=== PATIENT | male | born 1980 | race Caucasian/White ===

== ENCOUNTER → 2016-09-11 | Outpatient (CLI) | payer BC ==
[~2016-09-11] MED LIST: CHOL4POW2 PO; CRS10 PO; LRT5 PO; NXM/40 PO; OMEG10007 PO; PANT40TA PO; SERT25TA PO; SIMV10TA2 PO
--- NOTE | 2016-09-11 08:46 | DIAGNOSTIC IMAGING REPORT ---
BILIARY ULTRASOUND CLINICAL HISTORY: Epigastric pain. Abnormal liver function tests. COMPARISON STUDY: No previous studies for comparison. FINDINGS: The gallbladder appears sonographically normal. The liver appears sonographically normal. There is no right-sided hydronephrosis. There is no ductal dilatation. The common bile duct measures 3 mm. The pancreas is poorly visualized. No pancreatic masses were identified. IMPRESSION: Suboptimal visualization the pancreas. Otherwise normal study. Electronically signed by: Mina Macedo M.D. 09/11/2016 8:45 AM Dictated Date/Time: 09/11/2016 8:44 AM
== END | disposition home or self-care (01) ==
LOC: C.ULTR 08:12
PROVIDERS: ATTEND Internal Medicine
DX: R10.13 Epigastric pain (principal); R94.5 Abnormal results of liver function studies; R11.0 Nausea

== ENCOUNTER → 2016-09-25 | Outpatient (CLI) | payer BC | END | disposition home or self-care (01) | LOC: C.RDSM 10:30 | PROVIDERS: ATTEND Physical Medicine & Rehabilitation Sports Medicine | DX: G56.22 Lesion of ulnar nerve, left upper limb (principal); G56.00 Carpal tunnel syndrome, unspecified upper limb ==

== ENCOUNTER → 2016-10-04 | Day surgery (SDC) | payer BC ==
[2016-09-27 08:42] VITALS: Ht 170.2 cm; Wt 77.3 kg
[~2016-10-04] VITALS: Ht 170.2 cm; Wt 77.3 kg
[~2016-10-04] MED LIST changes: +ATROPINE SULFATE 0.1 MG/ML 5ML SYR IV PRN; +BUPIVACAINE/EPINEPHRINE 0.5% MPF 1:200,000 10 ML VIAL ONE; +CEFAZOLIN 2000 MG/60 ML D5W IV SCH; +DEXAMETHASONE SOD INJ 4 MG/ML VIAL ONE; +EpHEDrine SULFATE INJ 50 MG/ML AMP IV PRN; +FENTANYL CITRATE INJ 50 MCG/1 ML 2 ML VIAL IV PRN; +FENTANYL CITRATE INJ 50 MCG/1 ML 2 ML VIAL ONE; +KETOROLAC TROMETHAMINE 30 MG/ML VIAL ONE; +LACTATED RINGER'S 1000ML 1,000 ML IV SCH; +LIDOCAINE HCL 2% 2 ML VIAL (20MG/ML) ONE; +LIDOCAINE/EPINEPHRINE 1% INJ 50 ML VIAL ONE; -LRT5 PO; +MIDAZOLAM HCL 1 MG/ML 2ML VIAL ONE; +MoRPHine SULFATE 2 MG/ML CARP IV PRN; +MoRPHine SULFATE 4 MG/ML 1 ML CARP\\VIAL IV PRN; +ONDANSETRON INJ 2 MG/ML 2 ML VIAL IV PRN; +ONDANSETRON INJ 2 MG/ML 2 ML VIAL ONE; +OXYCODONE/ACETAMINOPHEN 5-325 TAB PO PRN; -PANT40TA PO; +PROMETHAZINE HCL INJ 6.25 MG in SODIUM CHLORIDE 0.9% 50ML 50 ML IV PRN; +PROPOFOL IV EMULSION 10 MG/ML 20 ML VIAL IV ONE; -SIMV10TA2 PO; +SODIUM CHLORIDE 0.9% 1000ML 1,000 ML IV SCH
--- NOTE | 2016-10-04 06:43 | History & Physical Bridge Note ---
H&P Re-Evaluation Bridge Note: I have examined the patient, reviewed the History & Physical and in the interval since the performance of the History & Physical I have noted the following changes of clinical significance: No changes noted
--- NOTE | 2016-10-04 09:32 | Discharge Instructions-SurgCtr ---
Discharge Instructions Date of Service Oct 04, 2016. Visit Reason for Visit: Left Carpal And Cubital Tunnel Syndrome Discharge Discharge Diagnosis / Problem: left carpal and cubital tunnel syndrome Discharge Goals Goal(s): Decrease discomfort, Improve function, Increase independence Activity Recommendations Activity Limitations: per Instructions/Follow-up section Weightbearing Status: Left non-weightbearing (upper extremity) Anesthesia . Post Anesthesia Instructions: If you have had General Anesthesia or IV Sedation: * Do not drive today. * Resume driving when surgeon permits. * Do not make important decisions or sign legal documents today. * Call surgeon for: 1. Temperature elevations greater than 101 degrees F. 2. Uncontrollable pain. 3. Excessive bleeding. 4. Persistent nausea and vomiting. 5. Medication intolerance (nausea, vomiting or rash). * For nausea and vomiting use only clear liquids such as: tea, soda, bouillon until nausea subsides, then gradually increase diet as tolerated. * If you have any concerns or questions, call your surgeon's office. If physician is unavailable and it is an emergency, call 911 or go to the nearest emergency room. . Instructions / Follow-Up Instructions / Follow-Up The following are instructions to follow after minor hand surgery. ACTIVITY RECOMMENDATIONS: * Minimize activity until your first visit after surgery. * No excessive walking, jogging, sports or laboring. * Return to activity is individualized. Most patients are able to return to everyday activities within 2 weeks. * Return to sports or intensive labor usually occurs at 1-2 months. * DRIVING: Driving may be resumed when you feel you have adequate pain control and use of the hand. * BATHING: You may shower or sponge-bathe immediately after surgery. The dressing will need to be covered with a plastic bag or plastic wrap until the dressing is changed on the fourth or fifth day after surgery. Once the dressing has been changed on the fourth or fifth day after surgery, you may shower and get the incision wet. * Wash with regular soap and water. * Do not bathe (submerge the incision), soak, swim or use a hot tub until the incision is completely healed over with normal skin and the doctor has given the OK to proceed. * There is no need to apply any ointments, powders or salves to your incision. * Do not apply alcohol or hydrogen peroxide directly to the incision. Diluted peroxide (50:50 mixture with sterile saline) may be used to clean dried blood from around the incision area. WORK/SCHOOL: * You may return to sedentary work or school when you are feeling comfortable. This is usually 3-7 days after surgery. * Expect increased discomfort with increased activity. Continue to elevate and ice the hand as much as possible. DIET: * Resume previous diet. MEDICATIONS: * You will have a prescription for pain medication and an anti-inflammatory medication after surgery. Use the pain pills for severe pain and the anti-inflammatory for less severe pain. * Once the pain pills have run out, try to use the anti-inflammatory. If this is not effective then contact the office for assistance. * The pain medication may cause nausea, constipation and sleepiness. You should see how they affect you before driving or similar activity. * The anti-inflammatory may cause stomach upset and bleeding. If this occurs, let your doctor know immediately . * Some patients may need blood clot prevention. This can be done with either a pill or a simple shot. Your doctor will advise you on when to begin these medications and how to take them. * Do not take aspirin or other anti-inflammatory products (i.e. Advil or Aleve ) if taking blood thinner medication. * Take a stool softener like Colace or a stimulant like Senokot to prevent constipation. SPECIAL CARE INSTRUCTIONS: ICE: * Do not apply ice directly to the skin. * Use a thin dressing or stockinet between the skin and ice bag. The dressing in place after surgery will suffice. * Apply ice for 20-30 minutes and repeat every 2-4 hours. This is especially important for the first 3-7 days after surgery. * Once the pain improves, use ice as needed. ELEVATION: * Keep your hand elevated at or above the level of your heart as much as possible. * Expect some increased discomfort and swelling if you allow your hand to hang down for any length of time. DRESSING: * Your dressing will be changed 4-5 days after surgery by the physical therapist or physician's catering assistant. Leave your dressing intact until this time. * You may then change your dressing daily with clean dry gauze or Band-aids and a soft wrap or stockinet. * Always wash your hands prior to touching the incision area. * Once the stitches are removed, you may leave the wound open to air or cover with a thin bandage. * There is no need to apply any ointments, powders or salves to your incision. * Expect some bloody drainage for the first few days after surgery. * Leave the tape strips in place (if present) for 5-7 days. * The initial dressing after surgery may become soaked with blood or fluid which is normal. You may reinforce your dressing with clean, dry gauze as needed. BRACE: * Bracing is generally not needed after routine hand surgery. THERAPY: * Physical therapy may be prescribed after your surgery. * For carpal tunnel and trigger digit surgery you may begin moving your fingers and wrist immediately after surgery as tolerated. * Be careful to not overuse. * Okay to use left elbow as tolerated for range of motion. Avoid any heavy pushing, pulling, or lifting. * Once the sutures are removed, further range of motion exercises can be performed. * Hand incisions may be very sensitive for a few months after surgery so avoid excessive pressure on the incision. If necessary, use a padded weightlifters' glove. * You may massage the incision with skin cream to make it less sensitive and reduce scarring. * Hand strength usually returns with normal use. * If needed, squeezing a soft sponge or Play-dough may help. * Your doctor will recommend physical therapy if necessary. PROBLEMS/QUESTIONS: * If you have any problems such as severe pain, numbness, tingling or high fevers or if you have any questions, please contact the office at [phone]. * It is not uncommon to have some numbness and tingling after the surgery especially if you have had a nerve block done. This should gradually improve over the first 1- 2 days. If this persists longer or worsens then contact the office. FOLLOW UP VISIT: * If not already scheduled, please call the office at to schedule follow-up appointments for approximately 10 days, 6 weeks and 3 months after surgery. Diet Recommendations Home Diet: no limitations, resume previous diet Procedures Procedures Performed: Left Carpal Tunnel Release, Left Elbow Ulnar Nerve Subcutaneous Transposition Pending Studies Studies pending at discharge: no Medical Emergencies . Who to Call and When: Medical Emergencies: If at any time you feel your situation is an emergency, please call 911 immediately. . Non-Emergent Contact Non-Emergency issues call your: Surgeon Call Non-Emergent contact if: temperature is above 101, your pain is not controlled, wound has increased drainage, wound has increased redness, wound has increased pain, you have any medication questions . . "Provider Documentation" section prepared by Lyric Zuniga. .
--- NOTE | 2016-10-04 09:32 | [facility] Operative Report ---
Operative Report Operative Date Oct 04, 2016. Pre-Operative Diagnosis Left Carpal Tunnel Syndrome Left Cubital Tunnel Syndrome Post-Operative Diagnosis Same Procedure(s) Performed Left Carpal Tunnel Release, Left Elbow Ulnar Nerve Subcutaneous Transposition Surgeon Dr. Chavez Automotive Vehicle Inspector Surgeon(s) Elaine Zuniga PA-C Estimated Blood Loss 10 ML Findings Thickened distal forearm fascia Specimens None Drains none Anesthesia laryngeal mask Complication(s) None Disposition Recovery Room / PACU Implants None Indications Patient's a 36-year-old male with signs and symptoms of left carpal and cubital tunnel syndrome. He has a consistent physical examination and a positive electrodiagnostic test. Treatment options were discussed and he elected to proceed with operative intervention. Description of Procedure Informed consent was obtained. The patient identified as [place]. A preoperative surgical timeout was performed. He received a preoperative dose of IV antibiotics. He was taken to the operating room positioned supine on the OR table. The left arm suspended on a hand table. A tourniquet was applied to the left upper arm. The examination under anesthesia under anesthesia showed no evidence of ligament laxity in the elbow. There is full movement of the wrist fingers forearm and elbow. The left upper extremity was prepped and draped in usual sterile fashion. DVT prophylaxis was not indicated. The left wrist and elbow were identified as the surgical sites and I marked with my initials. The limb was exsanguinated with the Esmarch tourniquet inflated to 225 mmHg. A longitudinal incision was made beginning at Anderson's cardinal line and extending just short of the main distal transverse wrist crease. Later during the surgery this was extended across the wrist crease in a zigzag fashion due to marked thickening of the distal forearm fascia. Dissection performed down to subcutaneous tissues and through the superficial palmar fascia. The distal extent of the transverse carpal ligament was identified. The ligament was noted to be markedly thickened. It was completely released and this was carried up into the proximal palm. A miniscule palmaris brevis muscle was noted. The contents of the carpal canal were normal. There is some perineural fibrosis around the median nerve but the nerve itself appeared morphologically normal. The tendons tenosynovium for the carpal canal were normal. There appeared to be residual tightness in the proximal incision. This necessitated extending the incision in a zigzag fashion across the wrist. The palmaris brevis was retracted ulnarly and the thickened and prominent distal forearm fascia which was responsible for the obstruction was released under direct visualization. The wound was then irrigated with sterile saline and then closed with 4-0 nylon using a combination of simple and interrupted horizontal mattress stitches. 1% lidocaine and 0.5% Marcaine both containing epinephrine were injected into the skin for perioperative analgesia at a volume of approximately 10 mL. Attention was then turned to the elbow. The incision was marked out paralleling the course of the ulnar nerve. The incision was approximately 12 cm in length and was slightly more proximal than distal. The skin was incised and blunt dissection was performed to subcutaneous tissues. Dissection was carried down to the transverse carpal ligament and superficial fascia distally. The skin and subcutaneous tissues were elevated up off of the distal forearm fascia. Proximally a prominent nerve was noted coursing just anterior and medial to the ulnar nerve. I the nerve trifurcated several centimeters above the medial epicondyle with II nerve branches heading to the posterior subcutaneous tissue and one large branch heading in the anterior subcutaneous tissue. This was likely the medial antebrachial cutaneous nerve. This nerve was isolated and protected and dissected out proximally. The ulnar nerve was then identified just above the medial condyle area was dissected out and isolated with vessel loop. It could not be transposed with its of veins. The medial muscular septum was identified and thoroughly released. The dissection of the ulnar nerve was carried out under the subcutaneous tissues under direct visualization using blunt dissection for a good 8-10 cm proximal to the medial epicondyle. The nerve was then dissected out through the cubital tunnel. The nerve appeared to be relatively healthy without any strictures or abnormal areas of notable compression. The 2 heads of the flexor carpi ulnaris were then split and the ulnar nerve was traced distally for a distance of 5-6 cm into the muscle. 2 large motor branches were noted and preserved and overlying fascial bands were released. A notch was made in the posterior margin of the proximal forearm fascia to ease the transition of the ulnar nerve from its transposed position. A large medially based fascial flap was elevated. It was minimal fibrosis around the ulnar nerve and it was easily dissected out of the cubital tunnel and transposed. The location for tacking down the fascial flap was identified and care was taken to avoid any subcutaneous nerves or veins. The fascial flap was secured in place with 2-0 Vicryl with the nerve and transposed position. The tourniquet was let down after 90 minutes of inflation. There was no kinking of the nerve. No subluxation of the nerve. There were no areas throughout the course of the nerve where there was any abnormal pressure on the nerve. Taken was hemostasis was performed using pressure and bipolar electrocautery throughout the case. Soft tissues were kept moist throughout the case. The skin was then closed using 30 and 4-0 Vicryl on subcutaneous layer. The skin was then closed with a running 3-0 Prolene subcuticular stitch area was cleaned with wet and dry sponges a soft sterile dressing was applied to the wrist and elbow with a full-length Dev wrap and a sling. No splint was utilized. After wound closure approximately 15 mL of 1% lidocaine and 0.5% Marcaine both containing epinephrine were injected only into the skin around the elbow incision. He was allowed wake from anesthesia without difficulty taken to the recovery room in stable condition. There were no specimens or complications. Counts are correct in the case. Blood loss was approximately 10 mL. At the conclusion operation spoke the patient's informed her my findings. Detailed postoperative instructions were given. He will be rehabilitated according to the carpal tunnel and cubital tunnel protocol. He' ll be able to do early active range of motion of the hand wrist and elbow. He will be seen in therapy early next week. I attest to the content of the Intraoperative Record and any orders documented therein. Any exceptions are noted below.
--- NOTE | 2016-10-04 09:35 | [facility] Operative Report ---
Operative Report Operative Date Oct 04, 2016. Pre-Operative Diagnosis Left Carpal Tunnel Syndrome Left Cubital Tunnel Syndrome Post-Operative Diagnosis Same Procedure(s) Performed Left Carpal Tunnel Release, Left Elbow Ulnar Nerve Subcutaneous Transposition Surgeon Dr. Shabbir Chavez Clerk General Surgeon(s) Lyric Zuniga PA-C Estimated Blood Loss 10 ML Findings left CTS; left cubital tunnel syndrome Specimens None Drains none Anesthesia laryngeal mask Complication(s) None Disposition Recovery Room / PACU (stable) Indications Patient is a 36-year-old male with complaints of paresthesias left hand. Ongoing for a couple of years. He has failed conservative treatment. X-rays were taken and negative of his left elbow and left wrist. EMG/NCS was performed and found to have left carpal tunnel syndrome and left cubital tunnel syndrome. Surgical intervention was recommended. He agreed to proceed. Risks and complications were discussed. Informed consent was obtained. Description of Procedure Patient was taken to the operating room placed under general anesthesia. He was given 2 g of IV Ancef for surgical prophylaxis. He was prepped and draped in routine sterile fashion. Timeout was performed. I was present in the entire case, please see Dr. Chavez's operative report for further detail. Patient was awakened and transferred to the recovery room in stable condition. I attest to the content of the Intraoperative Record and any orders documented therein. Any exceptions are noted below.
[2016-10-04 10:51] VITALS: TEMP 36.2
[2016-10-04 11:41] VITALS: BP 118/73; PULSE 79; O2SAT 94
--- NOTE | 2016-10-04 12:18 | Anesthesia Progress Nt - [facility] ---
Anesthesia Post Op Note Date & Time Oct 04, 2016 at 12:18 Vital Signs Pain Intensity: 0 Vital Signs Past 12 Hours Date Time Temp Pulse Resp B/P (MAP) Pulse Ox O2 Delivery O2 Flow Rate FiO2 10/04/16 11:41 79 118/73 (88) 94 10/04/16 10:51 36.2 89 119/73 (88) 96 Room Air 10/04/16 10:31 125/74 10/04/16 10:28 36.4 90 16 125/74 97 Room Air 10/04/16 10:28 99 16 10/04/16 10:28 99 16 94 10/04/16 10:25 122/69 10/04/16 10:23 99 16 96 10/04/16 10:23 99 16 10/04/16 10:20 122/73 10/04/16 10:18 78 16 97 10/04/16 10:18 77 16 10/04/16 10:16 124/73 10/04/16 10:13 76 6 96 10/04/16 10:13 77 6 10/04/16 10:10 116/76 10/04/16 10:08 80 12 98 10/04/16 10:08 80 12 10/04/16 10:05 126/75 10/04/16 10:03 80 18 10/04/16 10:03 80 18 97 10/04/16 10:00 122/74 10/04/16 09:58 82 13 10/04/16 09:58 83 13 97 10/04/16 09:56 124/77 10/04/16 09:53 81 0 10/04/16 09:53 82 0 97 10/04/16 09:50 127/77 10/04/16 09:48 85 13 98 10/04/16 09:48 83 13 10/04/16 09:45 118/74 10/04/16 09:43 90 17 97 10/04/16 09:43 88 17 10/04/16 09:40 123/76 10/04/16 09:38 86 121/78 97 10/04/16 09:38 36.4 82 20 121/78 97 Mask 6 10/04/16 09:38 86 10/04/16 06:27 36.3 76 16 119/80 (93) 96 Room Air Notes Mental Status: alert / awake / arousable, participated in evaluation Pt Amnestic to Procedure: Yes Nausea / Vomiting: adequately controlled Pain: adequately controlled Airway Patency, RR, SpO2: stable & adequate BP & HR: stable & adequate Hydration State: stable & adequate Anesthetic Complications: no major complications apparent block working well in pacu
== END | disposition home or self-care (01) ==
LOC: X.SURG 06:15
PROVIDERS: ATTEND Physical Medicine & Rehabilitation Sports Medicine
DX: G56.02 Carpal tunnel syndrome, left upper limb (principal); G56.22 Lesion of ulnar nerve, left upper limb; E78.00 Pure hypercholesterolemia, unspecified; R20.9 Unspecified disturbances of skin sensation; K21.9 Gastro-esophageal reflux disease without esophagitis; Z90.89 Acquired absence of other organs; Z82.49 Family history of ischemic heart disease and other diseases of the circulatory system; F32.9 Major depressive disorder, single episode, unspecified; F41.9 Anxiety disorder, unspecified; E78.5 Hyperlipidemia, unspecified; Z87.891 Personal history of nicotine dependence

== ENCOUNTER 2016-12-31 05:19 | Observation (INO) | payer BC ==
[2016-12-25 11:42] VITALS: BMI 26.0
[2016-12-31] VITALS (9 sets, daily range): BP systolic 108–121; BP diastolic 70–79; PULSE 67–87; TEMP 36.4–36.9; O2SAT 93–99; Ht 170.2 cm; Wt 77.3 kg
[~2016-12-31] VITALS: Ht 170.2 cm; Wt 77.3 kg
[~2016-12-31 05:19] MED LIST changes: -ATROPINE SULFATE 0.1 MG/ML 5ML SYR IV PRN; -BUPIVACAINE/EPINEPHRINE 0.5% MPF 1:200,000 10 ML VIAL ONE; -CEFAZOLIN 2000 MG/60 ML D5W IV SCH; -DEXAMETHASONE SOD INJ 4 MG/ML VIAL ONE; -EpHEDrine SULFATE INJ 50 MG/ML AMP IV PRN; -FENTANYL CITRATE INJ 50 MCG/1 ML 2 ML VIAL IV PRN; -FENTANYL CITRATE INJ 50 MCG/1 ML 2 ML VIAL ONE; -KETOROLAC TROMETHAMINE 30 MG/ML VIAL ONE; -LACTATED RINGER'S 1000ML 1,000 ML IV SCH; -LIDOCAINE HCL 2% 2 ML VIAL (20MG/ML) ONE; -LIDOCAINE/EPINEPHRINE 1% INJ 50 ML VIAL ONE; -MIDAZOLAM HCL 1 MG/ML 2ML VIAL ONE; -MoRPHine SULFATE 2 MG/ML CARP IV PRN; -MoRPHine SULFATE 4 MG/ML 1 ML CARP\\VIAL IV PRN; -ONDANSETRON INJ 2 MG/ML 2 ML VIAL IV PRN; -ONDANSETRON INJ 2 MG/ML 2 ML VIAL ONE; -OXYCODONE/ACETAMINOPHEN 5-325 TAB PO PRN; -PROMETHAZINE HCL INJ 6.25 MG in SODIUM CHLORIDE 0.9% 50ML 50 ML IV PRN; -PROPOFOL IV EMULSION 10 MG/ML 20 ML VIAL IV ONE; -SODIUM CHLORIDE 0.9% 1000ML 1,000 ML IV SCH
[2016-12-31] MEDS ORDERED: LACTATED RINGER'S 1000ML 1,000 ML IV SCH (06:00)
[2016-12-31] MEDS ORDERED: CEFUROXIME IV 1,500 MG in DEXTROSE 5% 100ML IV SCH (06:00)
[2016-12-31] MEDS ORDERED: MIDAZOLAM HCL 1 MG/ML 2ML VIAL ONE (06:43)
[2016-12-31] MEDS ORDERED: FENTANYL CITRATE INJ 50 MCG/1 ML 2 ML VIAL ONE (06:43)
[2016-12-31] MEDS ORDERED: BUPIVACAINE 0.5 % 5 MG/1 ML MPF 30ML VIAL ONE (06:45)
[2016-12-31] MEDS ORDERED: CONRAY 60% 50 ML VIAL ONE (06:45)
[2016-12-31] MEDS ORDERED: METOCLOPRAMIDE HCL INJ 5 MG/ML 2 ML VIAL ONE (07:31)
[2016-12-31] MEDS ORDERED: PROPOFOL IV EMULSION 10 MG/ML 20 ML VIAL IV ONE (07:31)
[2016-12-31] MEDS ORDERED: ROCURONIUM BROMIDE 10 MG/ML 5 ML VIAL IV ONE (07:31)
[2016-12-31] MEDS ORDERED: NEOSTIGMINE METHYLSULFATE 5 MG/5 ML SYR ONE (07:31)
[2016-12-31] MEDS ORDERED: GLYCOPYRROLATE INJ 0.2 MG/ML VIAL ONE (07:31)
[2016-12-31] MEDS ORDERED: LIDOCAINE HCL 2% 2 ML VIAL (20MG/ML) ONE (07:31)
[2016-12-31] MEDS ORDERED: ONDANSETRON INJ 2 MG/ML 2 ML VIAL ONE (07:31)
--- NOTE | 2016-12-31 07:52 | [facility] Operative Report ---
Operative Report Operative Date Dec 31, 2016. Pre-Operative Diagnosis Chronic Cholecystitis Post-Operative Diagnosis Same as preoperative Procedure(s) Performed Laparoscopic Cholecystectomy Surgeon Dr. Stephon Schroeder Philatelic Consultant Surgeon(s) Rita De La Rosa PA-C Estimated Blood Loss 5ml Findings chronic adhesions- especially near roxanne hepatis and very small cystic duct Specimens A.) Gallbladder and contents Anesthesia gen Complication(s) None Disposition Recovery Room / PACU I attest to the content of the Intraoperative Record and any orders documented therein. Any exceptions are noted below.
[2016-12-31] MEDS ORDERED: MoRPHine SULFATE 4 MG/ML 1 ML CARP\\VIAL IV PRN (08:00)
[2016-12-31] MEDS ORDERED: IBUPROFEN 600 MG TAB PO PRN (08:00)
[2016-12-31] MEDS ORDERED: PROMETHAZINE HCL INJ 25 MG in SODIUM CHLORIDE 0.9% 50ML 50 ML IV PRN (08:00)
[2016-12-31] MEDS ORDERED: MoRPHine SULFATE 2 MG/ML CARP IV PRN (08:00)
[2016-12-31] MEDS ORDERED: ONDANSETRON INJ 2 MG/ML 2 ML VIAL IV PRN ×2 (08:00→08:30)
[2016-12-31] MEDS ORDERED: HYDROCODONE/ACETAMOPHEN 5/325MG TAB PO PRN ×2 (08:00)
[2016-12-31] MEDS ORDERED: HYDR-5688 PO (08:01)
--- NOTE | 2016-12-31 08:04 | Discharge Instructions ---
Discharge Instructions Date of Service Dec 31, 2016. Admission Reason for Admission: Biliary Colic, Biliary Dyskinesia Discharge Discharge Diagnosis / Problem: chronic cholecystitis Discharge Goals Goal(s): Decrease discomfort, Improve function, Improve disease control Activity Recommendations Activity Limitations: as noted below Lifting Limitations: gradually increase as tolerated Exercise/Sports Limitations: until after follow-up appointment May Resume Sexual Activity: when tolerated Shower/Bathe: no limitations (may shower) Driving or Machine Use: resume 3 days after discharge SPECIAL CARE INSTRUCTIONS: * Cover incisions and change daily for comfort/drainage. may leave uncovered with dermabond * Avoid constipation- may use Senokot S and Milk of magnesia twice daily as directed on the package * May use ibuprofen for pain as tolerated. * Expect some swelling and bruising. Call your doctor if: * Temperature above 101 degrees * Pain not relieved by pain medicine ordered * There is increased drainage or redness from any incision * You have any unanswered questions or concerns [phone]. FOLLOW UP VISIT: If not already scheduled, please call the office for a follow-up visit. for 2 weeks- no sutures to remove OFFICE PHONE NUMBER: Dr. Schroeder Office . Current Hospital Diet Patient's current hospital diet: Regular Diet Discharge Diet Recommended Diet: Regular Diet Procedures Procedures Performed: Laparoscopic Cholecystectomy Pending Studies Studies pending at discharge: no Medical Emergencies . Who to Call and When: Medical Emergencies: If at any time you feel your situation is an emergency, please call 911 immediately. . Non-Emergent Contact Non-Emergency issues call your: Primary Care Provider, Surgeon . "Provider Documentation" section prepared by Stephon Schroeder. . VTE Core Measure Inpt VTE Proph given/why not?: SCD's
--- NOTE | 2016-12-31 08:08 | OPERATIVE REPORT ---
DATE OF OPERATION: 12/31/2016 NAME OF OPERATION: Laparoscopic cholecystectomy. PREOPERATIVE DIAGNOSIS: Biliary dyskinesia with biliary colic. POSTOPERATIVE DIAGNOSIS: Same with chronic cholecystitis and adhesions. STAFF SURGEON: Stephon Schroeder MD. COMMUNITY HEALTH EDUCATION COORDINATOR: Rita De La Rosa PA-C. ANESTHESIA: General. DESCRIPTION OF PROCEDURE: The patient was brought in the operating room and placed on the operating table in supine position. Orogastric tube and pneumatic stockings were placed. His abdomen was prepped and draped in usual fashion. Using 0.5% plain Marcaine, all incisions were anesthetized. Incision was made just above the umbilicus, carrying dissection down to the fascia, placing a Veress needle producing pneumoperitoneum. An 11 mm port was placed at this level and then under visualization, three 5 mm ports were placed, 1 cephalad and 2 laterally. Gallbladder was grasped and retracted. It was not significantly distended and was relatively small. However, there were significant adhesions of the omentum and tissue at the roxanne hepatis adherent to the gallbladder, especially near the area of the cystic duct which when dissected free was very very small and narrow. The duct was clipped and transected and the cystic artery identified, clipped and transected. Then the gallbladder dissected away from the liver bed in the usual fashion. It was placed in an Endobag. After appropriate irrigation and hemostasis, the Endobag was removed through the umbilical site. All ports were then removed. The fascia at the umbilicus closed using interrupted 0 Vicryl suture. Skin was reapproximated using subcuticular 4-0 Monocryl and Dermabond. The patient was transferred to recovery room in stable condition. My infertility medical assistant helped with entering the abdominal cavity and holding the camera and then helped retraction and closure of the abdomen. I attest to the content of the Intraoperative Record and any orders documented therein. Any exception s are noted below.
[2016-12-31] MEDS ORDERED: IV FLUIDS COMPLETED PRN (08:15)
[2016-12-31] MEDS ORDERED: KETOROLAC TROMETHAMINE 30 MG/ML VIAL IV ONE (08:15)
[2016-12-31] MEDS ORDERED: ATROPINE SULFATE 0.1 MG/ML 5ML SYR IV PRN (08:30)
[2016-12-31] MEDS ORDERED: KETOROLAC TROMETHAMINE 30 MG/ML VIAL IV. PRN (08:30)
[2016-12-31] MEDS ORDERED: HYDROmorphone INJ 2 MG/ML SYR/VIAL IV PRN (08:30)
[2016-12-31] MEDS ORDERED: LABETALOL HCL IV 5 MG/ML 20ML IV PRN (08:30)
--- NOTE | 2016-12-31 08:37 | Anesthesiology Progress Note ---
Anesthesia Post Op Note Date & Time Dec 31, 2016 at 08:37 Vital Signs Pain Intensity: 0 Vital Signs Past 12 Hours Date Time Temp Pulse Resp B/P (MAP) Pulse Ox O2 Delivery O2 Flow Rate FiO2 12/31/16 08:25 65 16 137/88 100 Oxymask 10 12/31/16 08:15 67 12 142/93 98 Oxymask 10 12/31/16 08:08 36.0 68 16 150/99 98 Oxymask 10 12/31/16 05:48 36.5 74 18 113/79 (90) 99 Room Air Notes Mental Status: alert / awake / arousable, participated in evaluation Pt Amnestic to Procedure: Yes Nausea / Vomiting: adequately controlled Pain: adequately controlled Airway Patency, RR, SpO2: stable & adequate BP & HR: stable & adequate Hydration State: stable & adequate Anesthetic Complications: no major complications apparent
[2016-12-31] MEDS: SERTRALINE HCL 50 MG TAB PO SCH (09:00)
[2016-12-31] MEDS ORDERED: PROMETHAZINE HCL INJ 12.5 MG in SODIUM CHLORIDE 0.9% 50ML 50 ML IV PRN (09:45)
[2016-12-31] MEDS: PANTOprazole SOD 40 MG TAB PO SCH (10:07)
[2016-12-31] MEDS: LACTATED RINGER'S 1000ML 1,000 ML IV SCH (10:08)
[2016-12-31] MEDS: DOCUSATE SODIUM/SENNA 50/8.6MG TAB PO SCH ×2 (10:09→20:30)
[2016-12-31] MEDS: CEFUROXIME IV 1,500 MG in DEXTROSE 5% 100ML 100 ML IV SCH ×2 (13:49→22:15)
[2016-12-31] MEDS ORDERED: MAGNESIUM HYDROXIDE SUSP 30 ML UDC PO SCH (16:00)
[2016-12-31] MEDS ORDERED: ROSUVASTATIN CALCIUM 10 MG TAB PO SCH (21:00)
[2017-01-01 03:36] VITALS: BP 118/70; PULSE 73; TEMP 36.6; O2SAT 93
[2017-01-01] MEDS: CEFUROXIME IV 1,500 MG in DEXTROSE 5% 100ML 100 ML IV SCH (05:44)
--- NOTE | 2017-01-01 06:22 | DISCHARGE SUMMARY ---
PRINCIPAL DIAGNOSIS: Chronic cholecystitis. PROCEDURE: The patient underwent laparoscopic cholecystectomy. HISTORY OF PRESENT ILLNESS: The patient is a 36-year-old male who has been having upper abdominal pain and symptoms consistent with biliary colic. The patient was brought into the hospital on 12/31/2016 where he underwent laparoscopic cholecystectomy. The patient had significant adhesions to the gallbladder consistent with chronic inflammation. He has done quite well and is ready for discharge home today to be followed in the surgical clinic within 1-2 weeks.
[2017-01-01] MEDS: LACTATED RINGER'S 1000ML 1,000 ML IV SCH (06:30)
[2017-01-01 07:21] VITALS: BP 118/70; PULSE 73; TEMP 36.6; O2SAT 93
[2017-01-01 07:23] VITALS: BP 116/76; PULSE 81; TEMP 36.3; O2SAT 93
[2017-01-01] MEDS: PANTOprazole SOD 40 MG TAB PO SCH (08:05)
[2017-01-01] MEDS: SERTRALINE HCL 50 MG TAB PO SCH (08:05)
[2017-01-01] MEDS: DOCUSATE SODIUM/SENNA 50/8.6MG TAB PO SCH (08:06)
== END 2017-01-01 09:19 | disposition home or self-care (01) ==
LOC: C.ACU 05:19 → C.MSW 07:56 → ENRESERV 08:48
PROVIDERS: ADMIT Surgery; ATTEND Surgery
DX: K80.44 Calculus of bile duct with chronic cholecystitis without obstruction (principal); K82.8 Other specified diseases of gallbladder; E66.9 Obesity, unspecified; E78.00 Pure hypercholesterolemia, unspecified; G47.33 Obstructive sleep apnea (adult) (pediatric); F32.9 Major depressive disorder, single episode, unspecified; F41.9 Anxiety disorder, unspecified; Z98.818 Other dental procedure status; Z90.89 Acquired absence of other organs; Z98.890 Other specified postprocedural states; Z79.899 Other long term (current) drug therapy; Z83.3 Family history of diabetes mellitus; Z80.0 Family history of malignant neoplasm of digestive organs; Z82.49 Family history of ischemic heart disease and other diseases of the circulatory system

== ENCOUNTER → 2017-02-07 | Day surgery (SDC) | payer BC ==
[2017-01-28 15:18] VITALS: Ht 170.2 cm; Wt 77.3 kg
--- NOTE | 2017-01-30 15:58 | History and Physical ---
History & Physical Date & Time of Service: Jan 30, 2017 at 15:02 Chief Complaint: Right Carpal Tunnel Syndrome Primary Care Physician: Wili Santacruz M.D. History of Present Illness Source: patient HISTORY OF PRESENT ILLNESS: The patient is a pleasant 36-year-old male, who works as a physician therapy administrative assistant, was seen by Dr. Chavez today after having an EMG done. He has had bilateral hand paresthesias for 12+ years. It started on the left side. He continues to have on the right.. He denies any known injury besides bumping his elbow off bleachers back in 8th or 9th grade. He said then with wrestling and weightlifting, he started having discomfort in his left wrist. Paresthesias have been bothering him for quite some time. He has tried conservative treatment such as bracing, but continues to have pain and numbness and tingling on a daily basis. He has trouble with driving and sleeping. He has no significant relief with any type of anti-inflammatory or bracing. Occasionally, also when making a full fist or tight gripping, he gets spasms in his hand. His hand goes numb In the median distribution. He had an EMG done by Dr. 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 He is undergone open left carpal tunnel release and left cubital tunnel release with Dr. Chavez in September 2016. His symptoms are completely resolved In his left arm. Due to these findings and his clinical symptoms and progressively worsening symptoms, surgical intervention was recommended. He has agreed to proceed. He is scheduled for an open Right carpal tunnel release with Dr. Chavez on February 07, 2017. Past Medical/Surgical History 1. High Cholesterol 2. Sleep apnea with CPAP machine 3. Right carpal tunnel syndrome 4. Hiatal hernia 5. Acid reflux and heartburn 6. Anxiety/Depression 7. Status post left carpal tunnel release in September 2016 8. Status post left cubital tunnel release in September 2016 9. Cholecystectomy in December 2016 10. Tonsillectomy and adenoidectomy 11. Excision of left parotid gland 12. [place] tooth extraction Family History Both of his parents are alive. Mother has a history of hypertension. Father had a history of mitral valve surgery in which the cordae tendineae was snipped. Social History Denies any tobacco or drug use. 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 He drinks one alcoholic drink per day. Smoking Status: Never Smoker Drug Use: none Marital Status: Housing status: lives with family Occupational Status: employed Allergies Coded Allergies: No Known Allergies (Verified , NONE, 01/28/17) Home Medications Scheduled Cholestyramine Light (Questran Powder Light), 1 DOSE PO QAM Esomeprazole Magnesium (Nexium), 40 MG PO QAM Fish Oil ([place]-3), 1 CAP PO QAM Rosuvastatin Calcium (Crestor), 1 TAB PO HS Sertraline (Zoloft), 25 MG PO QAM Review of Systems Constitutional: No fever, No chills, No weight loss, No fatigue Eyes: No redness ENT: No hearing loss, No sore throat, No tinnitus Respiratory: No cough, No sputum, No wheezing, No shortness of breath Cardiovascular: No chest pain, No edema, No palpitations Abdomen: No pain, No nausea, No vomiting, No diarrhea, No constipation Musculoskeletal: + problem reported Genitourinary - Male: No hematuria, No dysuria Neurologic: + numbness/tingling (right hand) Hematologic / Lymphatic: No abnormal bleeding/bruising, No clotting problems Integumentary: No rash, No itch Allergic / Immunologic: No frequent infections, No poor healing Physical Exam General Appearance: WD/WN, no apparent distress Head: normocephalic, atraumatic Eyes: normal inspection, PERRL, EOMI ENT: normal ENT inspection, hearing grossly normal, TMs normal, pharynx normal Neck: supple, no adenopathy, no carotid bruits, trachea midline Respiratory/Chest: chest non-tender, lungs clear, normal breath sounds, no respiratory distress, no accessory muscle use Cardiovascular: regular rate, rhythm, no edema, no murmur, normal peripheral pulses Abdomen/GI: normal bowel sounds, non tender, soft Extremities/Musculoskelatal: no calf tenderness, normal capillary refill, no pedal edema, + pertinent finding (exam or right wrist: + Tinel's, + Phalen's maneuver, full wrist and finger ROM, distal pulses 1+, decreased sensation in median nerve distribution, cramping and spasm or right hand with fist clenching. ) Neurologic/Psych: no motor/sensory deficits, alert, normal mood/affect, normal reflexes, oriented x 3 Skin: normal color, warm/dry, no rash Impression Assessment and Plan Impression: 1.Right carpal tunnel syndrome. PLAN: The patient is scheduled for open right carpal tunnel release with Dr. Chavez on February 07, 2017, at the [facility]. Risks and complications were explained to the patient and include but not limited to infection, pain, bleeding, scarring, nerve or blood vessel damage, wound problems, weakness, stiffness, incomplete relief of symptoms, recurrence, heart attack, stroke, and . All questions were answered. Informed consent was obtained by Dr. Chavez. He does not need any preoperative laboratory work, EKG, or medical clearance prior to surgery. He will follow up appropriately and begin exercises as instructed by Dr. Chavez. He requested no pain medication after surgery. He is going to just use Tylenol, ibuprofen, and ice. He will be out of work about 4 to 5 days after surgery. All questions were answered today. He will use the [facility] cloths prior to surgery as instructed. All questions were answered.
--- NOTE | 2017-02-06 15:49 | History and Physical: Surg Cnt ---
History & Physical Date Feb 06, 2017. Chief Complaint nasal obstruction History of Present Illness The patient is a 36 year old male with complaints of deviated septum Past Medical/Surgical History Medical Problems: (1) Chronic cholecystitis Additional History Hepatic Disease: No Endocrine Disorder: No Kidney Disease: No Hypertension: No Heart Disease: No Bleeding Tendencies: No Infectious Diseases: No Allergies Coded Allergies: No Known Allergies (Verified , NONE, 01/28/17) Home Medications Scheduled Cholestyramine Light (Questran Powder Light), 1 DOSE PO QAM Esomeprazole Magnesium (Nexium), 40 MG PO QAM Fish Oil ([place]-3), 1 CAP PO QAM Rosuvastatin Calcium (Crestor), 1 TAB PO HS Sertraline (Zoloft), 25 MG PO QAM Physical Examination Skin: warm/dry, no rash Eyes: normal inspection, EOMI, sclerae normal ENT: normal ENT inspection, pharynx normal Head: normocephalic, atraumatic Neck: supple, no adenopathy, trachea midline Respiratory/Chest: lungs clear, normal breath sounds, no respiratory distress Cardiovascular: regular rate, rhythm, no edema, no murmur Abdomen / GI: normal bowel sounds, non tender Back: normal inspection Extremities: normal inspection, normal range of motion Neurologic/Psych: no motor/sensory deficits, alert, normal reflexes, oriented x 3 Diagnosis deviated septum Plan of Treatment septoplasty, Celon turbinates
[~2017-02-07] VITALS: Ht 170.2 cm; Wt 77.3 kg
[~2017-02-07] MED LIST changes: +ATROPINE SULFATE 0.1 MG/ML 5ML SYR IV PRN; +BACITRACIN OINT 15 GM TUBE ONE; +BUPIVACAINE/EPINEPHRINE 0.5% MPF 1:200,000 30 ML VIAL ONE; +CEFAZOLIN 1000MG IV PUSH 5 ML IV SCH; +DEXAMETHASONE SOD INJ 4 MG/ML VIAL ONE; +EpHEDrine SULFATE INJ 50 MG/ML AMP IV PRN; +EpINEphrine INJ 1MG/ML AMP 1 MG/ML AMP ONE; +FENTANYL CITRATE INJ 50 MCG/1 ML 2 ML VIAL IV PRN; +FENTANYL CITRATE INJ 50 MCG/1 ML 2 ML VIAL ONE; +GELATIN SPONGE 12-7MM ONE; +HYDROCODONE/ACETAMIN 5/325MG TAB PO PRN; +LACTATED RINGER'S 1000ML 1,000 ML IV SCH; +LIDO 2%/EPINEPHRINE 1:100000 20 ML VIAL INFIL ONE; +LIDOCAINE 4% MPF SOAK 5 ML = 1 DOSE TOP ONE; +LIDOCAINE HCL 2% 2 ML VIAL (20MG/ML) ONE; +LIDOCAINE/EPINEPHRINE 1% INJ 50 ML VIAL ONE; +MIDAZOLAM HCL 1 MG/ML 2ML VIAL ONE; +ONDANSETRON INJ 2 MG/ML 2 ML VIAL IV PRN; +ONDANSETRON INJ 2 MG/ML 2 ML VIAL ONE; +OXYC-57 PO; +PROPOFOL IV EMULSION 10 MG/ML 20 ML VIAL IV ONE; +SODIUM CHLORIDE 0.9% 1000ML 1,000 ML IV SCH
--- NOTE | 2017-02-07 07:40 | [facility] Post Operative Brief Note ---
Immediate Operative Summary Operative Date Feb 07, 2017. Pre-Operative Diagnosis Right Carpal Tunnel Syndrome Post-Operative Diagnosis Same Procedure(s) Performed Right Carpal Tunnel Release Surgeon Dr. Chavez Surface Plate Finisher Surgeon(s) Elaine Zuniga PA-C Estimated Blood Loss 0ml Findings none Specimens None Anesthesia LMA, local Complication(s) None Disposition Recovery Room / PACU
--- NOTE | 2017-02-07 07:48 | Discharge Instructions-SurgCtr ---
Discharge Instructions Date of Service Feb 07, 2017. Visit Reason for Visit: Right Carpal Tunnel Syndrome Discharge Discharge Diagnosis / Problem: Right carpal tunnel syndrome Discharge Goals Goal(s): Decrease discomfort, Improve function, Increase independence Medications Stopped Medications Name(s): FISH OIL STOPPED 1 WEEK AGO Restart Stopped Medication(s): okay to resume fish oil Activity Recommendations Activity Limitations: per Instructions/Follow-up section Anesthesia . Post Anesthesia Instructions: If you have had General Anesthesia or IV Sedation: * Do not drive today. * Resume driving when surgeon permits. * Do not make important decisions or sign legal documents today. * Call surgeon for: 1. Temperature elevations greater than 101 degrees F. 2. Uncontrollable pain. 3. Excessive bleeding. 4. Persistent nausea and vomiting. 5. Medication intolerance (nausea, vomiting or rash). * For nausea and vomiting use only clear liquids such as: tea, soda, bouillon until nausea subsides, then gradually increase diet as tolerated. * If you have any concerns or questions, call your surgeon's office. If physician is unavailable and it is an emergency, call 911 or go to the nearest emergency room. . Instructions / Follow-Up Instructions / Follow-Up The following are instructions to follow after minor hand surgery. ACTIVITY RECOMMENDATIONS: * Minimize activity until your first visit after surgery. * No excessive walking, jogging, sports or laboring. * Return to activity is individualized. Most patients are able to return to everyday activities within 2 weeks. * Return to sports or intensive labor usually occurs at 1-2 months. * DRIVING: Driving may be resumed when you feel you have adequate pain control and use of the hand. * BATHING: You may shower or sponge-bathe immediately after surgery. The dressing will need to be covered with a plastic bag or plastic wrap until the dressing is changed on the fourth or fifth day after surgery. Once the dressing has been changed on the fourth or fifth day after surgery, you may shower and get the incision wet. * Wash with regular soap and water. * Do not bathe (submerge the incision), soak, swim or use a hot tub until the incision is completely healed over with normal skin and the doctor has given the OK to proceed. * There is no need to apply any ointments, powders or salves to your incision. * Do not apply alcohol or hydrogen peroxide directly to the incision. Diluted peroxide (50:50 mixture with sterile saline) may be used to clean dried blood from around the incision area. WORK/SCHOOL: * You may return to sedentary work or school when you are feeling comfortable. This is usually 3-7 days after surgery. * Expect increased discomfort with increased activity. Continue to elevate and ice the hand as much as possible. DIET: * Resume previous diet. MEDICATIONS: * You will have a prescription for pain medication and an anti-inflammatory medication after surgery. Use the pain pills for severe pain and the anti-inflammatory for less severe pain. * Once the pain pills have run out, try to use the anti-inflammatory. If this is not effective then contact the office for assistance. * The pain medication may cause nausea, constipation and sleepiness. You should see how they affect you before driving or similar activity. * The anti-inflammatory may cause stomach upset and bleeding. If this occurs, let your doctor know immediately . * Some patients may need blood clot prevention. This can be done with either a pill or a simple shot. Your doctor will advise you on when to begin these medications and how to take them. * Do not take aspirin or other anti-inflammatory products (i.e. Advil or Aleve ) if taking blood thinner medication. * Take a stool softener like Colace or a stimulant like Senokot to prevent constipation. SPECIAL CARE INSTRUCTIONS: ICE: * Do not apply ice directly to the skin. * Use a thin dressing or stockinet between the skin and ice bag. The dressing in place after surgery will suffice. * Apply ice for 20-30 minutes and repeat every 2-4 hours. This is especially important for the first 3-7 days after surgery. * Once the pain improves, use ice as needed. ELEVATION: * Keep your hand elevated at or above the level of your heart as much as possible. * Expect some increased discomfort and swelling if you allow your hand to hang down for any length of time. DRESSING: * Your dressing will be changed 4-5 days after surgery by the physical therapist or physician's blood bank assistant. Leave your dressing intact until this time. * You may then change your dressing daily with clean dry gauze or Band-aids and a soft wrap or stockinet. * Always wash your hands prior to touching the incision area. * Once the stitches are removed, you may leave the wound open to air or cover with a thin bandage. * There is no need to apply any ointments, powders or salves to your incision. * Expect some bloody drainage for the first few days after surgery. * Leave the tape strips in place (if present) for 5-7 days. * The initial dressing after surgery may become soaked with blood or fluid which is normal. You may reinforce your dressing with clean, dry gauze as needed. BRACE: * Bracing is generally not needed after routine hand surgery. THERAPY: * Physical therapy may be prescribed after your surgery. * For carpal tunnel and trigger digit surgery you may begin moving your fingers and wrist immediately after surgery as tolerated. * Be careful to not overuse. * Once the sutures are removed, further range of motion exercises can be performed. * Hand incisions may be very sensitive for a few months after surgery so avoid excessive pressure on the incision. If necessary, use a padded weightlifters' glove. * You may massage the incision with skin cream to make it less sensitive and reduce scarring. * Hand strength usually returns with normal use. * If needed, squeezing a soft sponge or Play-dough may help. * Your doctor will recommend physical therapy if necessary. PROBLEMS/QUESTIONS: * If you have any problems such as severe pain, numbness, tingling or high fevers or if you have any questions, please contact the office at [phone]. * It is not uncommon to have some numbness and tingling after the surgery especially if you have had a nerve block done. This should gradually improve over the first 1- 2 days. If this persists longer or worsens then contact the office. FOLLOW UP VISIT: * If not already scheduled, please call the office at to schedule follow-up appointments for approximately 10 days, 6 weeks and 3 months after surgery. Diet Recommendations Home Diet: no limitations, resume previous diet Procedures Procedures Performed: Right Carpal Tunnel Release Pending Studies Studies pending at discharge: no Medical Emergencies . Who to Call and When: Medical Emergencies: If at any time you feel your situation is an emergency, please call 911 immediately. . Non-Emergent Contact Non-Emergency issues call your: Surgeon Call Non-Emergent contact if: temperature is above 101, your pain is not controlled, your pain is worsening, wound has increased drainage, wound has increased redness, wound has increased pain, you have any medication questions . . "Provider Documentation" section prepared by Lyric Zuniga. .
--- NOTE | 2017-02-07 07:54 | [facility] Operative Report ---
Operative Report Operative Date Feb 07, 2017. Pre-Operative Diagnosis Right Carpal Tunnel Syndrome Post-Operative Diagnosis Same Procedure(s) Performed Right Carpal Tunnel Release Surgeon Dr. Chavez Ammonia Operator Surgeon(s) Lyric Zuniga PA-C Estimated Blood Loss 0ml Findings carpal tunnel syndrome right wrist Specimens None Drains None Anesthesia LMA, local Complication(s) None Disposition Recovery Room / PACU (stable) Indications Patient is a 36 year old male, with complaints of numbness and tingling right wrist. It has been ongoing for many years. He has failed conservative treatment. Surgical intervention recommended and he agreed to proceed with surgery. Informed consent was obtained. Description of Procedure Patient was taken to the operating room and placed under general anesthesia. He was given a local anesthetic into his right carpal tunnel. He was given 1 g of IV Ancef for surgical prophylaxis. I was present in the entire case, please see Dr. Chavez's operative report for further detail. I left and of the carpal tunnel procedure and Dr. Hobbs started his portion of the procedure. I attest to the content of the Intraoperative Record and any orders documented therein. Any exceptions are noted below.
--- NOTE | 2017-02-07 08:28 | Discharge Instructions-SurgCtr ---
Discharge Instructions Date of Service Feb 07, 2017. Visit Reason for Visit: Right Carpal Tunnel Syndrome Discharge Discharge Diagnosis / Problem: septal dev. Discharge Goals Goal(s): Improve function Medications Stopped Medications Name(s): FISH OIL STOPPED 1 WEEK AGO Activity Recommendations Activity Limitations: resume your previous activity Anesthesia . Post Anesthesia Instructions: If you have had General Anesthesia or IV Sedation: * Do not drive today. * Resume driving when surgeon permits. * Do not make important decisions or sign legal documents today. * Call surgeon for: 1. Temperature elevations greater than 101 degrees F. 2. Uncontrollable pain. 3. Excessive bleeding. 4. Persistent nausea and vomiting. 5. Medication intolerance (nausea, vomiting or rash). * For nausea and vomiting use only clear liquids such as: tea, soda, bouillon until nausea subsides, then gradually increase diet as tolerated. * If you have any concerns or questions, call your surgeon's office. If physician is unavailable and it is an emergency, call 911 or go to the nearest emergency room. . Instructions / Follow-Up Instructions / Follow-Up ACTIVITY RECOMMENDATIONS: * Being up and around is good, but no strenuous activity, heavy lifting or physical exertion for one week. * Keep your head elevated 30 degrees when lying down or sleeping. * Do not blow your nose for 48 hours, sniff back instead. * Avoid hot showers. OVER THE COUNTER MEDICATIONS: * You may use Tylenol * Avoid aspirin or aspirin containing products, e.g. as they may increase bleeding. SPECIAL CARE INSTRUCTIONS: * Expect to have bloody drainage from your nose and/or down your throat for one to three days. Change drip pad as needed. * Begin irrigating your nose with saline solution today, at least six to ten times per day and sniff back to help remove old clots or crust. * You may experience nasal and facial congestion, pain and pressure, this is normal. * Please call with any significant and/or progressive pain, redness, swelling around the eyes, visual changes, fever of 101.5 degrees F, active bleeding or any problems or concerns. * If active bleeding occurs, spray the nose three times at one minute intervals with Afrin spray and call or cell phone: . If unable to reach the doctor, go to the nearest Emergency Department. Special Diet: * Avoid extremely hot fluids. FOLLOW UP VISIT: Follow-up Visit with Dr. Hobbs If not already scheduled, please call to schedule. Diet Recommendations Home Diet: resume previous diet Procedures Procedures Performed: Septoplasty, Celon of Turbinates Pending Studies Studies pending at discharge: no Medical Emergencies . Who to Call and When: Medical Emergencies: If at any time you feel your situation is an emergency, please call 911 immediately. . Non-Emergent Contact Non-Emergency issues call your: Primary Care Provider . . "Provider Documentation" section prepared by Lita Hobbs. . [place] Drug Monitoring Program Search Results: no issues identified
--- NOTE | 2017-02-07 08:39 | OPERATIVE REPORT ---
DATE OF OPERATION: 02/07/2017 PREOPERATIVE DIAGNOSIS: Right carpal tunnel syndrome. POSTOPERATIVE DIAGNOSIS: Same. PROCEDURE: Open right carpal tunnel release. SURGEON: Dr. Chavez. HARBOR ENGINEER: Lyric Zuniga. No resident or fellow available. ANESTHESIA: Laryngeal mask with carpal tunnel block. BRIEF HISTORY: The patient is a 36-year-old male with right carpal tunnel syndrome refractory to nonsurgical methods of management. He is undergoing a concomitant nasal surgery subsequent to his hand surgery. OPERATION AND FINDINGS: PROCEDURE IN DETAIL: Informed consent was obtained. The patient was identified as [place]. He identified the operative site as the right hand. I marked it with my initials. A preoperative surgical timeout was performed. A preop dose of IV antibiotics was given. He was taken to the operating room, positioned supine on the OR table with the right arm on a hand table. The anesthetic was administered. A carpal tunnel block was performed after the time out using 1% lidocaine with epinephrine. The right upper extremity was examined and showed no significant findings. He had full movement of the fingers, wrist, forearm and elbow. The arm was prepped and draped in usual sterile fashion. DVT prophylaxis was not indicated. The limb was exsanguinated with the Esmarch, tourniquet inflated to 250 mmHg. A midline longitudinal incision was made beginning at Anderson's cardinal line and proceeding just short of the distal wrist crease. The main longitudinal palmar creases was utilized as appropriate. The incision stopped just short of the main transverse distal wrist crease. Blunt dissection was performed down through the subcutaneous tissues and superficial fascia until the transverse carpal ligament was identified. The distal extent of the ligament was identified by the fat in the mid palm. The transverse carpal ligament was then released up into the distal forearm fascia under direct visualization using the knife and tenotomy scissors. Proximally a palmaris brevis muscle was noted and was carefully divided. The patient had very thick and prominent distal forearm fascia. I took care to dissect superficial and deep to this and underneath the skin and release it under direct visualization with tenotomy scissors. The contents of the carpal canal and median nerve tendons, etc. were all normal. The wound was then irrigated with sterile saline, closed with 4-0 nylon in interrupted horizontal mattress stitch. A soft sterile dressing was applied and the tourniquet was let down after 15 minutes of inflation. There were no specimens or complications. Counts were correct at the end of case. Blood loss was minimal. At the conclusion of the operation, I spoke to the patient's and informed her of my findings. Detailed postoperative instructions were given. He will be rehabilitated according to the carpal tunnel protocol. I attest to the content of the Intraoperative Record and any orders documented therein. Any exception s are noted below.
--- NOTE | 2017-02-07 09:39 | Anesthesia Progress Nt - [facility] ---
Anesthesia Post Op Note Date & Time Feb 07, 2017 at 09:39 Vital Signs Pain Intensity: 0 Vital Signs Past 12 Hours Date Time Temp Pulse Resp B/P (MAP) Pulse Ox O2 Delivery O2 Flow Rate FiO2 02/07/17 09:30 77 14 124/82 96 02/07/17 09:30 77 14 02/07/17 09:25 80 11 02/07/17 09:25 81 11 124/84 97 02/07/17 09:24 36.4 83 14 124/82 94 Room Air 02/07/17 09:20 75 16 122/82 97 02/07/17 09:20 75 16 02/07/17 09:15 72 18 123/80 94 02/07/17 09:15 72 18 02/07/17 09:10 74 18 02/07/17 09:10 75 18 124/83 96 02/07/17 09:05 74 16 02/07/17 09:05 75 16 126/82 97 02/07/17 09:00 76 16 120/85 100 02/07/17 09:00 75 16 02/07/17 08:55 79 16 02/07/17 08:55 78 16 129/83 100 02/07/17 08:50 89 20 123/80 100 02/07/17 08:50 87 20 02/07/17 08:45 74 17 121/78 100 02/07/17 08:45 74 17 02/07/17 08:40 76 21 120/76 99 02/07/17 08:40 76 21 02/07/17 08:35 85 17 02/07/17 08:35 86 17 120/78 96 02/07/17 08:30 81 15 02/07/17 08:30 81 15 116/75 99 02/07/17 08:30 36.0 78 20 116/75 99 Humidified Oxygen 6 02/07/17 06:31 36.2 74 22 121/82 (95) 96 Room Air Notes Mental Status: alert / awake / arousable, participated in evaluation Pt Amnestic to Procedure: Yes Nausea / Vomiting: adequately controlled Pain: adequately controlled Airway Patency, RR, SpO2: stable & adequate BP & HR: stable & adequate Hydration State: stable & adequate Anesthetic Complications: no major complications apparent
--- NOTE | 2017-02-07 09:45 | OPERATIVE REPORT ---
DATE OF OPERATION: 02/07/2017 PREOPERATIVE DIAGNOSES: Septal deviation, chronic rhinitis and sleep apnea. POSTOPERATIVE DIAGNOSES: Same. PROCEDURE: Septoplasty with inferior turbinates radiofrequency volume reduction. SURGEON: Dr. Hobbs. ANESTHESIA: General LMA. COMPLICATIONS: None. BLOOD LOSS: 5 mL. HISTORY OF PRESENT ILLNESS: A 36-year-old with significant nasal obstruction, unable to wear CPAP. DESCRIPTION OF PROCEDURE: The patient was brought to the operating room and placed in the supine position. General anesthesia was induced using LMA. The first portion of the procedure was covered by Dr. Chavez. The attention was turned to the nose, which was redraped. The nose was decongested using cottonoids with topical solution of 4 mL of 4% Xylocaine with 1 mL of epinephrine. Injection of 2% Xylocaine 1:1,000 strength epinephrine was also used. The [employer] machine was used to perform radiofrequency volume reduction of the inferior turbinates, creating 4 lesions in each inferior turbinate with the setting at 18. The inferior turbinates were fractured laterally. The left hemitransfixion incision was made. Mucoperichondrium was elevated off the left side of the septum. Superior inferior tunnels were made and the cartilage inferiorly from the vomer maxillary crest and posteriorly from the perpendicular plate of the ethmoid. There was significant deviation of the perpendicular plate of the ethmoid to the left side, especially superiorly. This was removed in small pieces using the [place] rongeurs. A septal spur to the left inferiorly along with the bony spur was removed using the [place] dissector and the Donnie forceps. Posteriorly, the deviated portion of the perpendicular plate of the ethmoid was removed using the [place] rongeurs and the Donnie forceps, returning the septum to the midline. The septum was closed with a continuous mattress suture of 4-0 plain gut. Anterior nasal packing of [place] was placed. The patient tolerated the procedure well and was taken to recovery area in satisfactory condition. I attest to the content of the Intraoperative Record and any orders documented therein. Any exception s are noted below.
[2017-02-07 10:05] VITALS: BP 123/78; PULSE 78; TEMP 36.5; O2SAT 96
== END | disposition home or self-care (01) ==
LOC: X.SURG 06:15
PROVIDERS: ATTEND Physical Medicine & Rehabilitation Sports Medicine
DX: G56.01 Carpal tunnel syndrome, right upper limb (principal); E78.00 Pure hypercholesterolemia, unspecified; G47.33 Obstructive sleep apnea (adult) (pediatric); K21.9 Gastro-esophageal reflux disease without esophagitis; K44.9 Diaphragmatic hernia without obstruction or gangrene; F41.9 Anxiety disorder, unspecified; F32.9 Major depressive disorder, single episode, unspecified; Z79.899 Other long term (current) drug therapy

== ENCOUNTER → 2017-04-15 | Outpatient (CLI) | payer BC ==
[~2017-04-15] MED LIST changes: -ATROPINE SULFATE 0.1 MG/ML 5ML SYR IV PRN; -BACITRACIN OINT 15 GM TUBE ONE; -BUPIVACAINE/EPINEPHRINE 0.5% MPF 1:200,000 30 ML VIAL ONE; -CEFAZOLIN 1000MG IV PUSH 5 ML IV SCH; -DEXAMETHASONE SOD INJ 4 MG/ML VIAL ONE; -EpHEDrine SULFATE INJ 50 MG/ML AMP IV PRN; -EpINEphrine INJ 1MG/ML AMP 1 MG/ML AMP ONE; -FENTANYL CITRATE INJ 50 MCG/1 ML 2 ML VIAL IV PRN; -FENTANYL CITRATE INJ 50 MCG/1 ML 2 ML VIAL ONE; -GELATIN SPONGE 12-7MM ONE; -HYDROCODONE/ACETAMIN 5/325MG TAB PO PRN; -LACTATED RINGER'S 1000ML 1,000 ML IV SCH; -LIDO 2%/EPINEPHRINE 1:100000 20 ML VIAL INFIL ONE; -LIDOCAINE 4% MPF SOAK 5 ML = 1 DOSE TOP ONE; -LIDOCAINE HCL 2% 2 ML VIAL (20MG/ML) ONE; -LIDOCAINE/EPINEPHRINE 1% INJ 50 ML VIAL ONE; -MIDAZOLAM HCL 1 MG/ML 2ML VIAL ONE; -ONDANSETRON INJ 2 MG/ML 2 ML VIAL IV PRN; -ONDANSETRON INJ 2 MG/ML 2 ML VIAL ONE; -PROPOFOL IV EMULSION 10 MG/ML 20 ML VIAL IV ONE; -SODIUM CHLORIDE 0.9% 1000ML 1,000 ML IV SCH
[2017-04-15 12:19] LABS: HEMATOCRIT 42.1 % (42-52); HEMOGLOBIN 14.6 g/dL (14.0-18.0); MEAN CELL VOLUME 85.6 fL (80-100); MEAN CORPUSCULAR HEMOGLOBIN 29.7 pg (25-34); MEAN CORPUSCULAR HGB CONC 34.7 g/dl (32-36); MEAN PLATELET VOLUME 10.8 fL (7.4-10.4); PLATELET COUNT 199 K/uL (130-400); RED CELL DISTRIBUTION WIDTH CV 13.4 % (11.5-14.5); RED CELL DISTRIBUTION WIDTH SD 41.6 fL (36.4-46.3); WHITE BLOOD COUNT 5.92 K/uL (4.8-10.8)
[2017-04-15 12:25] LABS: ALBUMIN 4.1 gm/dl (3.4-5.0); ALT/SGPT 70 U/L (12-78); BLOOD UREA NITROGEN 15 mg/dl (7-18); CALCIUM 8.9 mg/dl (8.5-10.1); CARBON DIOXIDE 29 mmol/L (21-32); CREATININE 1.05 mg/dl (0.60-1.40); GLUCOSE 86 mg/dl (70-99); POTASSIUM 3.8 mmol/L (3.5-5.1); SODIUM 140 mmol/L (136-145)
[2017-04-15 12:35] LABS: ALKALINE PHOSPHATASE 87 U/L (45-117); AST/SGOT 52 U/L (15-37); TOTAL PROTEIN 7.9 gm/dl (6.4-8.2)
== END | disposition home or self-care (01) ==
LOC: C.LAB1850 09:58
PROVIDERS: ATTEND Internal Medicine
DX: R94.5 Abnormal results of liver function studies (principal); R00.0 Tachycardia, unspecified; K21.9 Gastro-esophageal reflux disease without esophagitis; E78.5 Hyperlipidemia, unspecified